=== PATIENT | female | born 2000 | race Two or more races ===

== ENCOUNTER 2020-01-31 16:27 | Emergency (ER) | payer BC ==
[2020-01-31 16:34] VITALS: BP 137/78
[2020-01-31] MEDS ORDERED: CEPHALEXIN 500 MG CAPSULE PO ONE (16:46)
[2020-01-31] MEDS ORDERED: MUPIROCIN 2% OINTMENT 22 GM TP ONE (16:46)
--- NOTE | 2020-01-31 16:51 | ER Document Report ---
ED Skin Rash/Insect Bite/Abscs - General Chief Complaint: Rash Stated Complaint: RASH/STOMACH Time Seen by Provider: 01/31/20 16:41 Primary Care Provider: [facility] [Provider Group] - Follow up as needed [facility] [Provider Group] - Follow up as needed [facility] [Provider Group] - Follow up as needed Mode of Arrival: Ambulatory Information source: Patient Notes: 19-year-old female presented to ED for a rash to the left side of her chest just lateral the bra line. She states it started out with 1 pimple which she did pop and cleaned. She states it then scabbed over then a couple days later it started spreading. She states it is painful. States last menstrual period was January 22. She does not denies any past medical history of anything for kidney infections. States she does not smoke drink or do any drugs. Rashes consistent with impetigo with a crusty drainage. - HPI Patient complains to provider of: Skin rash/lesion, Tender/swollen area Onset: Last week Onset/Duration: Gradual Severity: Moderate Pain Level: 3 Skin Character: Tenderness, Vesicular, Other - Yellow gold drainage Quality of rash: Painful Identify cause: No Exacerbated by: Denies Relieved by: Denies Similar symptoms previously: No Recently seen / treated by doctor: No - Related Data Allergies/Adverse Reactions: No Known Allergies Allergy (Verified 01/31/20 16:49) Past Medical History - General Information source: Patient - Social History Smoking Status: Never Smoker Frequency of alcohol use: None Drug Abuse: None Lives with: Family Family History: Reviewed & Not Pertinent Patient has suicidal ideation: No Patient has homicidal ideation: No - Past Medical History Cardiac Medical History: Reports: None Pulmonary Medical History: Reports: None EENT Medical History: Reports: None Neurological Medical History: Reports: None Endocrine Medical History: Reports: None Renal/ Medical History: Reports: Other - Continue infections Malignancy Medical History: Reports: None GI Medical History: Reports: None Musculoskeletal Medical History: Reports None Skin Medical History: Reports None Psychiatric Medical History: Reports: None Traumatic Medical History: Reports: None Infectious Medical History: Reports: None Surgical Hx: Negative Past Surgical History: Reports: None - Immunizations Immunizations up to date: Yes Hx Diphtheria, Pertussis, Tetanus Vaccination: Yes Review of Systems - Review of Systems Constitutional: No symptoms reported EENT: No symptoms reported Cardiovascular: No symptoms reported Respiratory: No symptoms reported Gastrointestinal: No symptoms reported Genitourinary: No symptoms reported Female Genitourinary: No symptoms reported Musculoskeletal: No symptoms reported Skin: Rash - Left mid chest just below the bra line Hematologic/Lymphatic: No symptoms reported Neurological/Psychological: No symptoms reported -: Yes All other systems reviewed and negative Physical Exam - Vital signs Vitals: Temp Pulse Resp BP Pulse Ox 98.4 F 88 19 137/78 H 98 01/31/20 16:32 01/31/20 16:32 01/31/20 16:32 01/31/20 16:32 01/31/20 16:32 Interpretation: Normal - General General appearance: Appears well, Alert - HEENT Head: Normocephalic, Atraumatic Eyes: Normal Pupils: PERRL - Respiratory Respiratory status: No respiratory distress Chest status: Other - Erythematous vesicular rash that is inflamed to the left mid chest just below the bra line with a yellow gold drainage Breath sounds: Normal Chest palpation: Normal - Cardiovascular Rhythm: Regular Heart sounds: Normal auscultation Murmur: No - Abdominal Inspection: Normal Distension: No distension Bowel sounds: Normal Tenderness: Nontender Organomegaly: No organomegaly - Back Back: Normal, Nontender - Extremities General upper extremity: Normal inspection, Nontender, Normal color, Normal ROM, Normal temperature General lower extremity: Normal inspection, Nontender, Normal color, Normal ROM, Normal temperature, Normal weight bearing. No: Jeet's sign - Neurological Neuro grossly intact: Yes Cognition: Normal Orientation: AAOx4 Kate Coma Scale Eye Opening: Spontaneous Kate Coma Scale Verbal: Oriented Kate Coma Scale Motor: Obeys Commands [place] Coma Scale Total: 15 Speech: Normal Motor strength normal: LUE, RUE, LLE, RLE Sensory: Normal - Psychological Associated symptoms: Normal affect, Normal mood - Skin Skin Temperature: Warm Skin Moisture: Dry Skin Color: Normal Skin irregularity: Erythema, Rash Location of irregularity: Chest - Just below the bra line left mid chest Irregularity with: Tenderness, Thickening, Inflammation, Other - Yellow gold drainage Course - Vital Signs Vital signs: Temp Pulse Resp BP Pulse Ox 98.4 F 88 19 137/78 H 98 01/31/20 16:43 01/31/20 16:32 01/31/20 16:32 01/31/20 16:32 01/31/20 16:32 Discharge - Discharge Clinical Impression: Impetigo Condition: Stable Disposition: HOME, SELF-CARE Additional Instructions: Impetigo You have a skin infection called impetigo. This infection is caused by germs growing between the skin layers. It spreads easily and is quite contagious. The usual treatment is with oral antibiotics, along with washing the sores and application of an antibiotic ointment. There's a new prescription antibiotic ointment which may allow some cases of impetigo to be treated without pills. Healing takes about a week. All involved areas should recover with no scarring. If there is significant worsening, or if new symptoms (such as dark urine, fever, chills, or red streaks) arise, call the doctor or return for re- examination. Soap Cleansing Gently wash the wound daily using a mild soap (like Ivory, Phisoderm, Neutrogena). Use warm water, rubbing gently until all debris, ooze, and crusting have been washed from the wound. Allow to dry briefly (about 10 minutes) after cleaning. Repeat this cleansing at least three times a day for the first two days and then once or twice a day. Bactroban Ointment Bactroban is very effective against the germs that cause infection within the skin. It's useful for impetigo and other superficial infections. Deeper infections require antibiotics by mouth or by shot. Apply the medicine three times a day for one week, or longer if your doctor has advised it. Stop the medicine and call your doctor if you develop large blisters, severe itching, increasing pain, swelling, fever, or spreading redness. Cephalexin The antibiotic you've been prescribed is a member of the cephalosporin class. This type of antibiotic covers a wide variety of infections, including those of the skin, lungs, and urinary tract. It's useful for staph infections. This antibiotic is slightly similar to the penicillin family. In rare cases, a person who is allergic to penicillin will also be allergic to this medication. If you have had a severe allergic reaction to penicillin, and have not taken this antibiotic since that time, notify your doctor. Antibiotics which cover many germs ("broad spectrum" antibiotics) are more likely to cause diarrhea or "yeast" infections. Women prone to vaginal yeast problems may suffer an attack after taking this antibiotic. In infants, oral thrush (white spots "stuck" on the cheek) or yeast diaper rash may result. See your doctor if these problems occur. Call at once if you develop itching, hives, shortness of breath, or lightheadedness. FOLLOW-UP CARE: If you have been referred to a physician for follow-up care, call the physicians office for an appointment as you were instructed or within the next two days. If you experience worsening or a significant change in your symptoms, notify the physician immediately or return to the Emergency Department at any time for re-evaluation. Prescriptions: Mupirocin [Bactroban 2% Ointment 22 gm] 1 applic TP TID 10 Days #1 tube Cephalexin Monohydrate [Keflex 500 mg Capsule] 500 mg PO Q6H 5 Days #20 capsule Forms: Elevated Blood Pressure Referrals: [facility] [Provider Group] - Follow up as needed [facility] [Provider Group] - Follow up as needed [facility] [Provider Group] - Follow up as needed
== END 2020-01-31 16:58 | disposition home or self-care (01) ==
LOC: ER 16:27
DX: L01.00 Impetigo, unspecified (principal)
CPT/HCPCS: 99283; J3490